=== PATIENT | male | born 1985 | race Caucasian/White ===

== ENCOUNTER 2018-12-17 10:43 | Emergency (ER) | payer SELFPAY ==
[2018-12-17 11:59] LABS: Barbiturates NEGATIVE (NEGATIVE); Benzodiazepines NEGATIVE (NEGATIVE); Cocaine NEGATIVE (NEGATIVE); METHAMPHETAM NEGATIVE (NEGATIVE); Methadone NEGATIVE (NEGATIVE); Opiates NEGATIVE (NEGATIVE); Phencyclidine NEGATIVE (NEGATIVE); THC Cannibis NEGATIVE (NEGATIVE)
--- NOTE | 2018-12-17 12:13 | ER ---
Nurse's Notes [facility] Name: Hemal Lin Age: 33 yrs Sex: Male : 1985 Arrival Date: 12/17/2018 Time: 10:47 Bed 3 Private MD: Diagnosis: Acute pharyngitis;Acute upper respiratory infection, unspecified Presentation: 12/17 10:53 Presenting complaint: Patient states: cough and sore throat that began 4 days ago. Pt aa5 reports chills last night. HR 167 at this time, pt states "my heart rate is always high when I go to the doctor and they have to give me Ativan to bring it down". 10:53 Transition of care: patient was not received from another setting of care. Onset of aa5 symptoms was December 17, 2018. Risk Assessment: Do you want to hurt yourself or someone else? Patient reports no desire to harm self or others. Care prior to arrival: None. 10:53 Method Of Arrival: Ambulatory aa5 10:53 Acuity: HAN 2 aa5 12:37 Initial Sepsis Screen: Does the patient meet any 2 criteria? HR > 90 bpm. Does the ch patient have a suspected source of infection? No. Patient's initial sepsis screen is negative. Historical: - Allergies: 10:55 No Known Allergies; aa5 - PMHx: 10:55 Anxiety; aa5 - PSHx: 10:55 left hand; aa5 - Immunization history:: Flu vaccine is not up to date. - Social history:: Smoking status: Patient uses tobacco products, smokes one pack cigarettes per day. - Ebola Screening: : No symptoms or risks identified at this time. Screenin:12 Abuse screen: Denies threats or abuse. Denies injuries from another. Nutritional ch screening: No deficits noted. Tuberculosis screening: No symptoms or risk factors identified. Fall Risk None identified. Assessment: 11:12 Reassessment: Patient appears in no apparent distress at this time. Patient and/or ch family updated on plan of care and expected duration. Pain level reassessed. Patient is alert, oriented x 3, equal unlabored respirations, skin warm/dry/pink. Pain: Complains of pain in throat Pain currently is 5 out of 10 on a pain scale. Respiratory: No deficits noted. Airway is patent Respiratory effort is even, unlabored, Breath sounds are clear bilaterally. EENT: Throat is reddened has patchy exudate has enlarged tonsils bilaterally. 12:03 General: Appears in no apparent distress. comfortable, Behavior is calm, cooperative, ch appropriate for age. Neuro: Level of Consciousness is awake, alert, obeys commands, Oriented to person, place, time, situation, Fast Food Worker are equal bilaterally Moves all extremities. Full function. Cardiovascular: Denies chest pain, lightheadedness, nausea, shortness of breath, Heart tones S1 S2 present. Respiratory: Airway is patent Trachea midline Respiratory effort is even, unlabored, Breath sounds are clear bilaterally. GI: Abdomen is flat, Bowel sounds present X 4 quads. Abd is soft and non tender X 4 quads. : No signs and/or symptoms were reported regarding the genitourinary system. Derm: Skin is pink, warm \\T\\ dry. 12:36 Reassessment: Patient appears in no apparent distress at this time. Patient and/or ch family updated on plan of care and expected duration. Pain level reassessed. Patient is alert, oriented x 3, equal unlabored respirations, skin warm/dry/pink. Patient states feeling better. Patient states symptoms have improved. Vital Signs: 10:54 BP 161 / 92; Pulse 167; Resp 18 S; Temp 98.2(O); Pulse Ox 99% on R/A; Weight 74.84 kg aa5 (R); Height 6 ft. 1 in. (185.42 cm) (R); Pain 5/10; 11:12 BP 162 / 94; Pulse 123; Resp 20; Pulse Ox 99% on R/A; Pain 5/10; ch 12:03 Pulse 92; Resp 16; Pulse Ox 97% on R/A; Pain 5/10; ch 12:36 BP 145 / 76; Pulse 87; Resp 16; Temp 98.6; Pulse Ox 99% on R/A; Pain 5/10; ch 10:54 Body Mass Index 21.77 (74.84 kg, 185.42 cm) aa5 ED Course: 10:47 Patient arrived in ED. mr 10:55 Arm band placed on Patient placed in an exam room, on a stretcher. aa5 10:56 [facility] Vill[facility]C [facility]. snw 10:56 Chago Baker MD is Attending Physician. snw 10:58 Triage completed. aa5 11:08 EKG done, by technical sales consultant. reviewed by Mya SIMONS. at1 11:12 Franchesca Poole, RN is Primary Nurse. ch 11:12 Patient has correct armband on for positive identification. Placed in gown. Bed in low ch position. Call light in reach. Side rails up X2. residential monitor on. Pulse ox on. NIBP on. Warm blanket given. 11:12 Missed attempt(s): 20 gauge in right in left antecubital area. Bleeding controlled, ch band aid applied, catheter tip intact. 12:03 No apparent distress. Resting quietly. ch 12:03 No provider procedures requiring assistance completed. ch 12:36 Patient did not have IV access during this emergency room visit. ch Administered Medications: 12:13 Not Given (intervention not needed): NS 0.9% 1000 ml IV at 1 bolus Per protocol; 1000 ss mL bolus 12:13 Drug: Decadron 8 mg Route: PO; ss 12:14 Not Given (Intervantion not needed): NS 0.9% 1000 ml IV at 1 bolus Per protocol; 1000 ss mL bolus 12:14 Not Given (Intervention not needed): Metoprolol 5 mg IVP every 5 minutes; Hold for SBP ss < 100 or HR < 60. x3 Outcome: 12:13 Discharge ordered by . snw 12:36 Discharged to home ambulatory. 12:36 Condition: improved 12:36 Discharge instructions given to patient, Instructed on discharge instructions, follow up and referral plans. Demonstrated understanding of instructions, follow-up care, medications, Prescriptions given X 2. 12:42 Patient left the ED. ss Signatures: Franchesca Poole, RN Mya Hopkins ch, ROLL INSPECTOR-C ROLL INSPECTOR-Csnw Angelita MccarthyMariely, RN RN aa5 Ana Tobias RN RN Kendra Harris, ornament setter EKG Tat1 Corrections: (The following items were deleted from the chart) 12:38 12:36 Discharge instructions given to patient, Instructed on discharge instructions, follow up and referral plans. Demonstrated understanding of instructions, follow-up care, medications, Prescriptions given X 1, ch
--- NOTE | 2018-12-17 12:13 | EDPHYS ---
Physician Documentation [facility] Name: Hemal Lin Age: 33 yrs Sex: Male : 1985 Arrival Date: 12/17/2018 Time: 10:47 Bed 3 Private MD: ED Physician Chago Baker HPI: 12/17 10:58 This 33 yrs old Male presents to ER via Unassigned with complaints of Sore snw Throat, Cough. 10:58 The patient presents with sore throat. The patient describes throat pain as raw, snw scratchy. Onset: The symptoms/episode began/occurred yesterday. Severity of symptoms: At their worst the symptoms were moderate. Associated signs and symptoms: Pertinent positives: cough, flu-like symptoms, Sore throat. The patient has experienced similar episodes in the past, multiple times. The patient has not recently seen a physician. pt states each and every time he comes to an ED his heartrate is too fast. The medicine that "makes you sink into the bed" doesn't work.. Historical: - Allergies: 10:55 No Known Allergies; aa5 - PMHx: 10:55 Anxiety; aa5 - PSHx: 10:55 left hand; aa5 - Immunization history:: Flu vaccine is not up to date. - Social history:: Smoking status: Patient uses tobacco products, smokes one pack cigarettes per day. - Ebola Screening: : No symptoms or risks identified at this time. ROS: 11:00 Constitutional: Negative for fever, chills, and weight loss, Eyes: Negative for injury, snw pain, redness, and discharge, ENT: Negative for injury, pain, and discharge, Neck: Negative for injury, pain, and swelling, Cardiovascular: Negative for chest pain, palpitations, and edema. 11:00 ENT: Negative for injury and discharge, + sore throat 11:00 Abdomen/GI: Negative for abdominal pain, nausea, vomiting, diarrhea, and constipation, Back: Negative for injury and pain, : Negative for injury, bleeding, discharge, and swelling, MS/Extremity: Negative for injury and deformity, Skin: Negative for injury, rash, and discoloration, Neuro: Negative for headache, weakness, numbness, tingling, and seizure. 11:00 Respiratory: Positive for cough. Exam: 11:00 Constitutional: This is a well developed, well nourished patient who is awake, alert, snw and in no acute distress. Head/Face: Normocephalic, atraumatic. Eyes: Pupils equal round and reactive to light, extra-ocular motions intact. Lids and lashes normal. Conjunctiva and sclera are non-icteric and not injected. Cornea within normal limits. Periorbital areas with no swelling, redness, or edema. 11:00 Neck: Trachea midline, no thyromegaly or masses palpated, and no cervical lymphadenopathy. Supple, full range of motion without nuchal rigidity, or vertebral point tenderness. No Meningismus. Chest/axilla: Normal chest wall appearance and motion. Nontender with no deformity. No lesions are appreciated. 11:00 Abdomen/GI: Soft, non-tender, with normal bowel sounds. No distension or tympany. No guarding or rebound. No evidence of tenderness throughout. Back: No spinal tenderness. No costovertebral tenderness. Full range of motion. Skin: Warm, dry with normal turgor. Normal color with no rashes, no lesions, and no evidence of cellulitis. MS/ Extremity: Pulses equal, no cyanosis. Neurovascular intact. Full, normal range of motion. Neuro: Awake and alert, GCS 15, oriented to person, place, time, and situation. Cranial nerves II-XII grossly intact. Motor strength 5/5 in all extremities. Sensory grossly intact. Cerebellar exam normal. Normal gait. Psych: Awake, alert, with orientation to person, place and time. Behavior, mood, and affect are within normal limits. 11:00 ENT: Exam is negative for 11:00 Cardiovascular: Rate: tachycardic, Rhythm: regular, Pulses: no pulse deficits are appreciated. 11:00 Respiratory: moderate respiratory distress is noted. Vital Signs: 10:54 BP 161 / 92; Pulse 167; Resp 18 S; Temp 98.2(O); Pulse Ox 99% on R/A; Weight 74.84 kg aa5 (R); Height 6 ft. 1 in. (185.42 cm) (R); Pain 5/10; 11:12 BP 162 / 94; Pulse 123; Resp 20; Pulse Ox 99% on R/A; Pain 5/10; ch 12:03 Pulse 92; Resp 16; Pulse Ox 97% on R/A; Pain 5/10; ch 12:36 BP 145 / 76; Pulse 87; Resp 16; Temp 98.6; Pulse Ox 99% on R/A; Pain 5/10; ch 10:54 Body Mass Index 21.77 (74.84 kg, 185.42 cm) aa5 MDM: 11:32 Patient medically screened. snw 12:15 Data reviewed: vital signs, nurses notes. Data interpreted: Pulse oximetry: on room air snw is 97 %. Interpretation: normal. Counseling: I had a detailed discussion with the patient and/or guardian regarding: the historical points, exam findings, and any diagnostic results supporting the discharge/admit diagnosis, lab results, the need for outpatient follow up, to return to the emergency department if symptoms worsen or persist or if there are any questions or concerns that arise at home, smoking cessation. Response to treatment: the patient's symptoms have markedly improved after treatment, heartrate to within normal without intervention. Special discussion: I have referred the patient to see his PCP for further evaluation of high blood pressure. Based on the history and exam findings, there is no indication for further emergent testing or inpatient evaluation. 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 12/17 10:57 Order name: Flu; Complete Time: 11:58 snw 12/17 10:57 Order name: UDS; Complete Time: 12:10 snw 12/17 11:44 Order name: Urine Dipstick--Ancillary (enter results); Complete Time: 12:25 kj1 12/17 10:57 Order name: EKG; Complete Time: 10:58 snw 12/17 10:57 Order name: EKG - Nurse/Tech; Complete Time: 11:22 snw Administered Medications: 12:13 Not Given (intervention not needed): NS 0.9% 1000 ml IV at 1 bolus Per protocol; 1000 ss mL bolus 12:13 Drug: Decadron 8 mg Route: PO; ss 12:14 Not Given (Intervantion not needed): NS 0.9% 1000 ml IV at 1 bolus Per protocol; 1000 ss mL bolus 12:14 Not Given (Intervention not needed): Metoprolol 5 mg IVP every 5 minutes; Hold for SBP ss < 100 or HR < 60. x3 Disposition: 13:26 Co-signature as Attending Physician, Chago Baker MD I agree with the assessment and kdr plan of care. Disposition: 12/17/18 12:13 Discharged to Home. Impression: Acute pharyngitis, Acute upper respiratory infection, unspecified. - Condition is Stable. - Discharge Instructions: Pharyngitis, Steps to Quit Smoking, Smoking Hazards, Upper Respiratory Infection, Adult, Cool Mist Vaporizer, Rehydration, Adult, Sinus Tachycardia. - Prescriptions for Zyrtec 10 mg Oral Tablet - take 1 tablet by ORAL route once daily As needed; 20 tablet. Tessalon Perles 100 mg Oral Capsule - take 1 capsule by ORAL route every 8 hours As needed; 15 capsule. - Work release form, Medication Reconciliation Form, Thank You Letter, Antibiotic Education, Prescription Opioid Use form. - Follow up: Private Physician; When: 2 - 3 days; Reason: Recheck today's complaints, Continuance of care, Re-evaluation by your physician. Follow up: Emergency Department; When: As needed; Reason: Worsening of condition. Signatures: Dispatcher [employer] EDMS Chago Baker MD MD [facility] Mya Villareal, TEXTILE ENGINEER-C TEXTILE ENGINEER-Csnw Mariely Layne, RN RN aa5 Ana Tobias RN RN ss Corrections: (The following items were deleted from the chart) 12:42 12:13 12/17/2018 12:13 Discharged to Home. Impression: Acute pharyngitis; Acute upper ss respiratory infection, unspecified. Condition is Stable. Forms are Medication Reconciliation Form, Thank You Letter, Antibiotic Education, Prescription Opioid Use. Follow up: Private Physician; When: 2 - 3 days; Reason: Recheck today's complaints, Continuance of care, Re-evaluation by your physician. Follow up: Emergency Department; When: As needed; Reason: Worsening of condition. snw
[2018-12-17 12:22] LABS: Urine Blood NEGATIVE (NEG); Urine Glucose NEGATIVE (NEG); Urine Protein NEGATIVE (NEG); Urine Specific Gravity 1.025 (1.005-1.030); Urine pH 5.5 (5.0-7.0)
[2018-12-17] MEDS ORDERED: DEXAMETHASONE 10 MG/ML VIAL ONE (12:26)
--- NOTE | 2018-12-17 17:08 | EKG ---
Test Date: 2018-12-17 Test Time: 10:58:04 [employer] Equipment Servicer: HEIDI/S MEASUREMENT RESULTS: Intervals: Rate: 148 DC: 116 QRSD: 84 QT: 338 QTc: 530 [place]: P: 78 DC: 116 QRS: 99 T: 69 INTERPRETIVE STATEMENTS: Sinus tachycardia Rightward axis Junctional ST depression, probably normal Borderline ECG No previous ECG available for comparison Electronically Signed On 12-17-18 17:06:44 CDT by Grabiel Gonzales
== END 2018-12-17 12:42 | disposition home or self-care (01) ==
LOC: ER 10:43
DX: J02.9 Acute pharyngitis, unspecified (principal); J06.9 Acute upper respiratory infection, unspecified; F41.9 Anxiety disorder, unspecified; F17.210 Nicotine dependence, cigarettes, uncomplicated
CPT/HCPCS: 80307; 81003; 87804; 93005; 99284; J1100